=== PATIENT | male | born 1995 | race American Indian/Alaskan Native ===

== ENCOUNTER 2017-05-25 16:46 | Emergency (ER) | payer MEDICAID, OTHER ==
[2017-05-25 16:49] VITALS: BMI 23.6
[2017-05-25 16:51] VITALS: RESP 18; TEMP 97.4
[2017-05-25] MEDS ORDERED: cefTRIAXone (Rocephin) 250 mg Inj IM STA (17:11)
--- NOTE | 2017-05-25 17:17 | ED PDOC ---
Arrival/HPI - General Chief Complaint: Male Genitourinary Time Seen by Provider: 05/25/17 16:47 Historian: Patient - History of Present Illness Narrative History of Present Illness (Text): 05/25/17 17:17 18-year-old male presents today with concerns for STD. Patient states on May 13 he had unprotected sex with an old partner and on May 14 he developed a penile discharge and dysuria. He denies abdominal pain. Denies fevers or chills. Denies lesions on the penis. Patient denies a history of STD in the past. Patient states he went to a clinic and was tested but has not received the results and wants to be treated for STD. He denies nausea vomiting diarrhea or constipation. He denies testicular pain. no other complaints. Symptom Onset: Sudden Symptom Course: Intermittent Quality: Burning Severity Level: 1 Past Medical History - Provider Review Nursing Documentation Reviewed: Yes - Travel History Have you recently traveled outside [place] w/in the past 3 mons?: No - Tetanus Immunization Tetanus Immunization: Unknown - Cardiac Hx Cardiac Disorders: No - Pulmonary Hx Respiratory Disorders: No - Neurological Hx Neurological Disorder: No - HEENT Hx HEENT Disorder: No - Renal Hx Renal Disorder: No - Endocrine/Metabolic Hx Endocrine Disorders: No - Hematological/Oncological Hx Blood Disorders: No - Integumentary Hx Dermatological Disorder: No - Musculoskeletal/Rheumatological Hx Musculoskeletal Disorders: No - Gastrointestinal Hx Gastrointestinal Disorders: No - Genitourinary/Gynecological Hx Sexually Transmitted Diseases: Yes - Psychiatric Hx Psychophysiologic Disorder: No Hx Substance Use: No - Anesthesia Hx Anesthesia: No Family/Social History - Physician Review Nursing Documentation Reviewed: Yes Family/Social History: Unknown Family HX Smoking Status: Never Smoked Hx Alcohol Use: No Hx Substance Use: No Allergies/Home Meds Allergies/Adverse Reactions: Allergies No Known Allergies Allergy (Verified 05/25/17 16:49) Review of Systems - Review of Systems Constitutional: absent: Fatigue, Fevers Respiratory: absent: SOB, Cough Cardiovascular: absent: Chest Pain, Palpitations Gastrointestinal: absent: Abdominal Pain, Nausea, Vomiting Genitourinary Male: Dysuria, Other (penile discharge.). absent: Frequency, Hematuria, Urinary Output Changes Skin: absent: Rash, Pruritis Neurological: absent: Headache, Dizziness Psychiatric: absent: Anxiety, Depression Physical Exam Vital Signs Reviewed: Yes Vital Signs Temp Pulse Resp BP Pulse Ox 05/25/17 19:12 62 18 118/75 100 05/25/17 16:50 97.4 F L 72 18 115/73 98 Temperature: Afebrile Blood Pressure: Normal Pulse: Regular Respiratory Rate: Normal Appearance: Positive for: Well-Appearing, Non-Toxic, Comfortable Pain Distress: None Mental Status: Positive for: Alert and Oriented X 3 - Systems Exam Head: Present: Atraumatic Mouth: Present: Moist Mucous Membranes Neck: Present: Normal Range of Motion Respiratory/Chest: Present: Clear to Auscultation, Good Air Exchange. No: Respiratory Distress, Accessory Muscle Use Cardiovascular: Present: Regular Rate and Rhythm, Normal S1, S2. No: Murmurs Abdomen: No: Tenderness, Rebound, Guarding Genitourinary Male: Present: Normal External Genitalia, Circumcised Penis, Other (chaparoned by Wally NEVAREZ). No: Lesions, Penile Discharge, Testicle Tenderness, Penile Swelling, Masses, Erythema, Testicle Swelling Neurological: Present: GCS=15 Skin: Present: Warm, Dry, Normal Color. No: Rashes Psychiatric: Present: Alert, Oriented x 3 Medical Decision Making ED Course and Treatment: 05/25/17 17:28 Patient is nontoxic well-appearing in no distress with stable vital signs Ceftriaxone 250 mg IM Zithromax 1 g p.o. given UA; trace leukocytes, 10-12 wbcs Gonorrhea and Chlamydia cultures are pending. Advised patient to refrain from sex for 10 days followup with the primary care physician within the next 2 days or return if symptoms worsen persist or if new symptoms develop. Patient verbalizes understanding of discharge instructions and need for immediate followup. Impression: Urethritis, uti bactrim 1 tablet twice daily x 7 days Follow up primary care physician within the next 2 days Return if symptoms worsen persist or if new symptoms develop. - Lab Interpretations Lab Results: Lab Results 05/25/17 17:21: Urine Color Yellow, Urine Appearance Clear, Urine pH 6.0, Ur Specific [place] 1.025, Urine Protein Negative, Urine Glucose (UA) Negative, Urine Ketones Trace H, Urine Blood Negative, Urine Nitrate Negative, Urine Bilirubin Negative, Urine Urobilinogen 1.0 H, Ur Leukocyte Esterase Trace H, Urine RBC 0 - 2, Urine WBC 10 - 15, Ur Epithelial Cells 0 - 2, Urine Bacteria Many, Urine Other Fiber - Medication Orders Current Medication Orders: Discontinued Medications Azithromycin (Zithromax) 1,000 mg PO STAT STA PRN Reason: Protocol Stop: 05/25/17 17:12 Last Admin: 05/25/17 17:57 Dose: 1,000 mg Ceftriaxone Sodium (Rocephin) 250 mg IM STAT STA PRN Reason: Protocol Stop: 05/25/17 17:12 Last Admin: 05/25/17 17:57 Dose: 250 mg IM Administration Charges Document 05/25/17 17:57 SF (Rec: 05/25/17 17:57 SF [facility] [id number] Injection Site MAR Injection Site Right Gluteus Quirino Charges for Administration # of IM Administrations 1 Disposition/Present on Arrival - Present on Arrival Any Indicators Present on Arrival: No History of DVT/PE: No History of Uncontrolled Diabetes: No Urinary Catheter: No History of Decub. Ulcer: No History Surgical Site Infection Following: None - Disposition Have Diagnosis and Disposition been Completed?: Yes Diagnosis: Urethritis, UTI (urinary tract infection) Disposition: HOME/ ROUTINE Disposition Time: 17:34 Patient Plan: Discharge Condition: GOOD Discharge Instructions (ExitCare): Urinary Tract Infection, Adult (DC), Urethritis (DC) Additional Instructions: Follow up primary care physician within the next 2 days bactrim; 1 tablet twice daily x 7 days Return if symptoms worsen persist or if new symptoms develop. Prescriptions: Sulfamethoxazole/Trimethoprim [Bactrim DS 800 mg-160 mg] 1 tab PO BID #14 tab Referrals: PCP,ALONDRA [Primary Care Provider] - Follow up with primary Adal Self DO [Staff Provider] - Follow up with primary Forms: [employer] (Arabic)
[2017-05-25 18:04] LABS: URINE BILIRUBIN NEGATIVE (NEGATIVE); URINE BLOOD NEGATIVE (NEGATIVE); URINE GLUCOSE (UA) NEGATIVE (NEGATIVE); URINE LEUKOCYTE ESTERASE TRACE Leu/uL (NEGATIVE); URINE NITRATE NEGATIVE (NEGATIVE); URINE PROTEIN NEGATIVE mg/dL (<30 mg/dL)
[2017-05-25 18:08] LABS: URINE APPEARANCE CLEAR (CLEAR); URINE COLOR YELLOW (YELLOW)
[2017-05-25 18:39] LABS: URINE BACTERIA MANY (NEG); URINE EPITHELIAL CELLS 0 - 2 /hpf (0-5); URINE RBC 0 - 2 /hpf (0-2)
[2017-05-25 19:36] VITALS: BP 118/75; PULSE 62; O2SAT 100
== END 2017-05-25 19:12 | disposition home or self-care (01) ==
LOC: ED 16:46
DX: N34.2 Other urethritis (principal)
CPT/HCPCS: 81001; 87086; 87491; 87591; 96372; 99284; J0696